=== PATIENT | female | born 1990 | race Asian ===

== ENCOUNTER 2017-04-01 17:35 | Inpatient (IN) | payer OTHER ==
--- NOTE | 2017-04-01 21:01 | HP ---
Past Medical History - Primary Care Physician PCP:: Fausto Priest - Admission Chief Complaint: 26 yo P0 @ 39 weeks with increasing in intensity contructions, no VB, No LOF, + FM History of Present Illness: problems: 1. Late transfer of care from [place] History Source: Patient Limitations to Obtaining History: No Limitations - Past Medical History ...: 1 ...Para: 0 ...Term: 0 ...: 0 ...Spon : 0 ...Induced : 0 ...LMP: 06/28/16 ... Weeks Gestation by Dates: 39.4 ...EDC by Dates: 04/04/17 - Past Surgical History Past Surgical History: Yes: None Hx Myomectomy: No Hx Transabdominal Cerclage: No - Smoking History Have you smoked in the past 12 months: No - Alcohol/Substance Use Hx Alcohol Use: No History of Substance Use: reports: None - Social History History of Recent Travel: No Home Medications - Allergies Allergies/Adverse Reactions: Allergies Allergy/AdvReac Type Severity Reaction Status Date / Time No Known Allergies Allergy Verified 04/01/17 18:24 - Home Medications Home Medications: Ambulatory Orders Vits #93/Iron Fum/FA [ Formula Tablet] 1 each PO DAILY Physical Exam - Maternity Vital Signs: Vital Signs Temperature 98.0 F 04/01/17 18:15 Pulse Rate 107 H 04/01/17 18:15 Respiratory Rate 20 04/01/17 18:15 Blood Pressure 124/81 04/01/17 18:15 O2 Sat by Pulse Oximetry (%) Constitutional: Yes: Well Nourished HENT: Yes: WNL Neck: Yes: WNL Cardiovascular: Yes: WNL Lungs: Clear to auscultation Breast(s): Yes: WNL - Abdominal Exam/OB Fundal Height: 39 (EFW 6.5lb) Number of Fetuses: Single Presentation: Vertex Contractions: Yes Regularity: Regular Intensity: Moderate Monitor Mode: External Heart Rate Location: Midline Category: I Accelerations: Uniform Decelerations: None - Vaginal Exam/OB Vaginal Bleediing: No Dilatation (cm): 5 Effacement (%): 80% Amniotic Membrane Status: Intact Presentation: Vertex/Position Station: -3 - Physical Exam Musculoskeletal: Yes: WNL Extremities: Yes: WNL Edema: No Integumentary: Yes: WNL Deep Tendon Reflex Grade: Normal +2 ...Motor Strength: WNL Psychiatric: Yes: WNL Assessment/Plan 26 yo P0 @ 39 weeks in early active labor Admit to L&D GBS negative, no prophylaxis needed IVF, NPO, Admit labs Stadol Phenergan for pain
[2017-04-01 21:04] LABS: BASOPHIL 0.4 % (0-2.0); EOSINOPHIL 0.8 % (0-4.5); MCHC 32.8 g/dl (32.0-36.0); MEAN CELL VOLUME 91.7 fl (80-96); MEAN PLT VOLUME 8.1 fl (7.5-11.1); NEUTROPHILS 77.5 % (42.8-82.8); PLATELET COUNT 314 K/MM3 (134-434); WHITE BLOOD COUNT 14.6 K/mm3 (4.0-10.0)
[2017-04-01] MEDS ORDERED: BUTORPHANOL TARTRATE 1 MG/ML VIAL IVPUSH ONE (21:17)
[2017-04-01] MEDS ORDERED: PROMETHAZINE HCL 25 MG/1 ML VIAL IVPUSH ONE (21:17)
[2017-04-01 21:30] LABS: INR 0.89 (0.82-1.09); PROTHROMBIN TIME (PATIENT) 9.8 SEC (9.98-11.88)
[2017-04-01] MEDS ORDERED: ELECTROLYTE-148 SOLN 1,000 ML IV SCH (21:30)
[2017-04-01 21:40] LABS: COCKROFT - GAULT 119.9435; CREATININE 0.8 mg/dL (0.55-1.02)
[2017-04-01 21:45] LABS: HIV 1 & 2 AB NEGATIVE; HIV 1 AGp24 NEGATIVE
[2017-04-01 22:24] VITALS: BMI 27.4
[2017-04-02] MEDS: ELECTROLYTE-148 SOLN 1,000 ML IV SCH ×2 (03:00→12:00)
[2017-04-02] MEDS ORDERED: BUTORPHANOL TARTRATE 1 MG/ML VIAL IVPB ONE (04:30)
[2017-04-02] MEDS ORDERED: FENTANYL/BUPIVACAINE/NS/PF - PCEA - 50 ML DISP.SYRIN EP SCH (07:30)
[2017-04-02] MEDS ORDERED: OXYTOCIN 15 UNITS/ LR 250 ML 250 ML IVPB SCH (08:30)
--- NOTE | 2017-04-02 08:44 | PN ---
Progress Note, Labor Vaginal Exam #1 Labor Exam Date: 04/02/17 Labor Exam Time: 08:30 Heart Rate (range): 140's pos. scalp stimulation, x2 early decels, Dilatation: 8 Effacement (%): 100 Amniotic Membrane Status: Ruptured (mild meconium) Presentation: Vertex/Position Station: -2 (26 yo P0 @ 39wks in labor, infrequent contractions, comfortable after epidural, Maternal status reasuring, EFW 6.5lb, no caput or molding Will start Pitocin augmentation)
--- NOTE | 2017-04-02 09:51 | PN ---
Ante-Partal Exam - Subjective Subjective: Pt w/o complaints. Chart reviewed. Pt met and examined. Vital Signs: Vital Signs Temperature 98.4 F 04/02/17 07:00 Pulse Rate 104 H 04/02/17 08:30 Respiratory Rate 20 04/02/17 08:30 Blood Pressure 121/72 04/02/17 08:30 O2 Sat by Pulse Oximetry (%) 98 04/02/17 08:30 Bleeding: No Headache: No Visual changes: No Right upper quadrant pain: No Pain (scale 1-10): 0 (Epidural) - Contractions Contractions: Yes Regularity: Regular (q5-6min) Intensity: Unaware Monitor Mode: External - Exam during Labor Heart Rate: 130 Variability: Moderate Heart Rate Location: Midline Category: I Monitor Accelerations: Present Monitor Decelerations: None Presentation: Vertex - Intrapartum Hemorrhage Risk Medium Risk Factors: None High Risk Factors: None Risk Score: 0 Risk Level: Low Risk - Assessment/Plan Assessment/Plan: 26 yo P0 with active labor. Fetus with Category I tracing and requires no intervention. The contractions are spread out and pitocin was started to augment labor.
--- NOTE | 2017-04-02 10:33 | PN ---
Ante-Partal Exam - Subjective Subjective: No complaints Vital Signs: Vital Signs Temperature 98.4 F 04/02/17 07:00 Pulse Rate 104 H 04/02/17 08:30 Respiratory Rate 20 04/02/17 08:30 Blood Pressure 121/72 04/02/17 08:30 O2 Sat by Pulse Oximetry (%) 98 04/02/17 08:30 Bleeding: No Headache: No Visual changes: No Right upper quadrant pain: No Pain (scale 1-10): 0 - Contractions Contractions: Yes Regularity: Regular Intensity: Unaware Monitor Mode: External - Exam during Labor Heart Rate: 140 Variability: Moderate Heart Rate Location: Midline Category: I Monitor Accelerations: Present Monitor Decelerations: None Exam: Vaginal Dilatation (cm): 9 Effacement (%): 90 Amniotic Membrane Status: Leaking Amniotic Fluid: Meconium Stained Meconium Staining: Moderate Presentation: Vertex Station: 0 Remarks: Adequate pelvimetry - Intrapartum Hemorrhage Risk Medium Risk Factors: None High Risk Factors: None Risk Score: 0 Risk Level: Low Risk - Assessment/Plan Assessment/Plan: 26yo P0 with active labor. Fetus with Category I tracing. Continue pitocin augmentation. Monitor labor progress. Anticipate .
--- NOTE | 2017-04-02 17:42 | PN ---
Ante-Partal Exam - Subjective Subjective: 26 yo P0 @ 39 wks in active labor, now spontaneously ruptured with thin meconium Vital Signs: Vital Signs Temperature 98.7 F 04/02/17 16:00 Pulse Rate 116 H 04/02/17 16:00 Respiratory Rate 20 04/02/17 16:00 Blood Pressure 149/90 04/02/17 16:00 O2 Sat by Pulse Oximetry (%) 100 04/02/17 16:00 Bleeding: No Headache: No Visual changes: No Right upper quadrant pain: No - Contractions Contractions: Yes Regularity: Regular Intensity: Moderate Monitor Mode: External - Exam during Labor Heart Rate: 130 Variability: Moderate Heart Rate Location: [facility] Category: I Monitor Accelerations: Present Monitor Decelerations: None Exam: Vaginal Dilatation (cm): FD Effacement (%): 100 Amniotic Membrane Status: Ruptured Meconium Staining: Light Presentation: Vertex Station: +1 - Intrapartum Hemorrhage Risk Medium Risk Factors: None High Risk Factors: None Risk Score: 0 Risk Level: Low Risk - Assessment/Plan Assessment/Plan: 26 yo P 0 @ 39 wks now pushing for 1 hour, vertex in OP presentation will give top off and let patient rest, since currently poor maternal effort, to achieve further passive descent status is currently reassuring
[2017-04-02] MEDS ORDERED: BENZOCAINE 20% 57 GM BOTTLE TP PRN (21:21)
[2017-04-02] MEDS ORDERED: IBUPROFEN 800 MG/8 ML IJ IVPB PRN (21:21)
[2017-04-02] MEDS ORDERED: WITCH HAZEL 50% (TUCKS) 40 PAD/JAR PAD TP PRN (21:21)
[2017-04-02] MEDS ORDERED: BENZOCAINE 28 GM HEMORRHOIDAL OINTMENT TP PRN (21:21)
[2017-04-02] MEDS ORDERED: METHYLERGONOVINE MALEATE 0.2 MG/1 ML AMP IM PRN (21:21)
[2017-04-02] MEDS ORDERED: D5W-LR W/ 20 UNITS OXYTOCIN 1,000 ML IV SCH (21:30)
[2017-04-02] MEDS ORDERED: ONDANSETRON 4 MG/2 ML VIAL IVPB PRN (21:47)
--- NOTE | 2017-04-02 22:52 | OP ---
Operative Note - Note: Operative Date: 04/02/17 Pre-Operative Diagnosis: 26 yo P1 @ 39 wks with failure to descent, Occiput Posterior, Poor maternal effort Operation: Primary low segment transverse c/section Findings: 1. Viable female in occiput posterior presentation, APGARs 9/10, weight 6.6lb 2. Normal bilateral tubes and ovaries Post-Operative Diagnosis: Same as Pre-op Surgeon: Charo Dc Supervisor Filtration: Ramone Hernandez Anesthesiologist/TIE LOADER: Jane Lockhart Anesthesia: Epidural Specimens Removed: Fetus and Placenta Estimated Blood Loss (mls): 800 Drains, Volume Out (mls): 100 Fluid Volume Replaced (mls): 1,500 Operative Report Dictated: Yes
--- NOTE | 2017-04-03 00:04 | OP ---
DATE OF OPERATION: 04/02/2017 PREOPERATIVE DIAGNOSIS: A 26-year-old para 1 at 39 weeks with failure to descend. Occiput posterior presentation and poor maternal effort. POSTOPERATIVE DIAGNOSIS: A 26-year-old para 1 at 39 weeks with failure to descend. Occiput posterior presentation and poor maternal effort. OPERATION: Primary low segment transverse section. FINDINGS: Viable female , occiput posterior presentation, Apgars 9 and 10 , weight 6.6 pounds, normal bilateral tubes and ovaries. SURGEON: Charo Dc M.D. ANESTHESIOLOGIST: Ramone Hernandez M.D. ANESTHESIOLOGIST: Jane Lockhart D.O. ANESTHESIA: Epidural. DESCRIPTION OF OPERATIVE PROCEDURE: After assuring informed consent, the patient was brought to the operating room where the timeout was called. Patient was identified. The abdomen was prepped and draped in the sterile fashion. Left lateral displacement was achieved. Pfannenstiel skin incision was made with a scalpel, carried down to the level of fascia with a scalpel. Fascia was dissected bilaterally with Bovie cautery and off the rectus abdominis muscle with Bovie cautery superiorly and inferiorly. The rectus abdominis was split in the midline and dissected superiorly and inferiorly. Peritoneum was tented and entered bluntly, and peritoneal incision was dissected bilaterally with Bovie cautery and stretched manually. Bladder was retracted with low edge of the George. The vesicouterine peritoneum was tented and dissected bilaterally with Metzenbaum scissors. Bladder flap was created and retracted with the George. The uterine incision was made with a scalpel and dissected bilaterally with bandage scissors. Infant's head in occiput posterior presentation, was delivered atraumatically. was delivered, cord was clamped x2. was handed to a waiting lump receiver. Apgars were 9 and 10. Baby's weight was 6 pounds 6 ounces. Placenta was expressed intact The uterus was subsequently repaired with 0 Biosyn with running locking suture and subsequent imbricating layer. The gutters were cleared of clot and debris, and the normal tubes and ovaries were visualized. The peritoneum was closed with 0 Biosyn. The muscle was reapproximated in the midline with 0 Biosyn. Fascia was closed with 0 Vicryl in running suture. The subcuticular stitches were placed with 0 chromic and 4-0 Biosyn was used to reapproximate the skin. Excellent hemostasis was noted throughout. Estimated blood loss was 800 mL. Urine output was 100 mL. Fluid replaced was 1500. The sponge and instrument counts were correct x2. Patient was returned to the recovery room in stable condition. Dayna [id number] NICH[facility] NOYES MEMORIAL HOSPITALHalle
[2017-04-03] MEDS: CEFAZOLIN (PRE-DOCKED) 50 ML IVPB SCH ×3 (01:15→17:27)
[2017-04-03 08:36] LABS: MCH 30.7 pg (25.7-33.7); MCHC 33.1 g/dl (32.0-36.0); MEAN CELL VOLUME 92.7 fl (80-96); MEAN PLT VOLUME 7.9 fl (7.5-11.1); PLATELET COUNT 255 K/MM3 (134-434); RDW 14.4 % (11.6-15.6); WHITE BLOOD COUNT 21.4 K/mm3 (4.0-10.0)
--- NOTE | 2017-04-03 08:40 | PN ---
Progress Note (short form) - Note Progress Note: Post op day#1.S/P C section under epidural anesthesia with duramorph uneventful.Patient stable and does not c/o pain.No any anesthesia related problem.Patient DC from the anesthesia care.
[2017-04-03] MEDS: ENOXAPARIN NA (PORCINE) 40 MG/0.4 ML DISP.SYRIN SQ SCH (10:03)
[2017-04-03] MEDS: PRENATAL VITAMINS W/ FOLIC ACID TABLET (FP) PO SCH (10:58)
[2017-04-03 11:48] LABS: PLATELET ESTIMATE ADEQUATE (NORMAL)
[2017-04-03] MEDS ORDERED: ACETAMINOPHEN 1000 MG/100 ML VIAL (NON FORMULARY) IVPB PRN (12:56)
[2017-04-03] MEDS ORDERED: DEXTROSE 5%-LACTATED RINGERS 1,000 ML IV SCH (13:00)
--- NOTE | 2017-04-03 14:13 | PN ---
Post Progress Note - Subjective Subjective: 26 yo P1 now, s/p 1' c/s for failure to descent, declined to push Pain well controlled No nausea, vomiting Noted to have hematuria Post Day: 1 Type of Delivery: Primary C/S Vital Signs: Vital Signs Temperature 98.7 F 04/03/17 05:17 Pulse Rate 110 H 04/03/17 05:17 Respiratory Rate 20 04/03/17 06:00 Blood Pressure 114/64 04/03/17 05:17 O2 Sat by Pulse Oximetry (%) 99 04/02/17 22:45 Breast Exam: Yes: Soft Uterus: Yes: Fundus Firm Incision: Yes: Dressing dry and intact Abdomen/GI: Yes: Abdomen soft Lochia: Yes: Rubra Lochia, amount: Small Extremities: Yes: Calves non-tender Perineum: Yes: Intact Activity: Other (in bed) - Labs Labs: CBC WBC 21.4 K/mm3 (4.0-10.0) H D 04/03/17 08:00 RBC 3.60 M/mm3 (3.60-5.2) 04/03/17 08:00 Hgb 11.0 GM/dL (10.7-15.3) D 04/03/17 08:00 Hct 33.4 % (32.4-45.2) 04/03/17 08:00 MCV 92.7 fl (80-96) 04/03/17 08:00 MCHC 33.1 g/dl (32.0-36.0) 04/03/17 08:00 RDW 14.4 % (11.6-15.6) 04/03/17 08:00 Plt Count 255 K/MM3 (134-434) 04/03/17 08:00 MPV 7.9 fl (7.5-11.1) 04/03/17 08:00 Neutrophils % 86.0 % (42.8-82.8) H 04/03/17 08:00 Lymphocytes % 7.0 % (8-40) L D 04/03/17 08:00 Monocytes % 6.0 % (3.8-10.2) 04/03/17 08:00 Eosinophils % 0.8 % (0-4.5) 04/01/17 20:59 Basophils % 1.0 % (0-2.0) 04/03/17 08:00 Differential Comment Manual diff done 04/03/17 08:00 Platelet Estimate Adequate (NORMAL) 04/03/17 08:00 Assessment/Plan 26 yo P1 now s/p 1' LST c/section for failure to descent, declined pushing VSS, Afibrile Hematuria noted Workman kept, NPO, IVHydration continued Urology Dr. Talbot consulted Cystoureterogram ordered, case discussed with Dr. Ribera
[2017-04-03] MEDS: SIMETHICONE 80 MG TAB.CHEW (FP) PO PRN ×2 (17:28→22:57)
[2017-04-03] MEDS: IBUPROFEN 600 MG TABLET (FP) PO PRN (17:28)
[2017-04-03] MEDS: CLINDAMYCIN 600MG PREMIX IVPB 50 ML IVPB SCH (17:54)
[2017-04-03] MEDS: GENTAMICIN 80 MG PREMIXED IVPB 100 ML IVPB SCH (18:20)
--- NOTE | 2017-04-03 18:35 | PN ---
Progress Note, Physician Chief Complaint: 26 yo P1 s/p c/s POD # 1 with Hematuria pain contralled very light blood tinge urine - Current Medication List Current Medications: Active Medications Acetaminophen (Tylenol -) 650 mg PO Q4H PRN PRN Reason: FEVER OR PAIN Acetaminophen (Ofirmev Injection -) 1,000 mg IVPB Q8H PRN Last Admin: 04/03/17 13:10 Dose: 1,000 mg Benzocaine (Americaine Ointment -) 1 applic TP PRN PRN PRN Reason: PAIN Benzocaine (Americaine 20% Adolphus -) 1 spray TP PRN PRN PRN Reason: PAIN Bisacodyl (Dulcolax Suppository -) 10 mg RC PRN PRN PRN Reason: CONSTIPATION Diphenhydramine HCl (Benadryl Injection -) 25 mg IVPUSH Q4H PRN PRN Reason: Pruritis Enoxaparin Sodium (Lovenox -) 40 mg SQ DAILY [facility] Last Admin: 04/03/17 10:03 Dose: 40 mg Dextrose/Lactated Ringer's (D5-Lr -) 1,000 mls @ 150 mls/hr IV ASDIR NU Last Admin: 04/03/17 13:14 Dose: 150 mls/hr Gentamicin Sulfate/Sodium Chloride (Garamycin 80 Mg Premixed Ivpb -) 100 mls @ 100 mls/hr IVPB Q8H-IV NU Last Admin: 04/03/17 18:20 Dose: 100 mls/hr Clindamycin Phosphate (Cleocin 600 Mg Premix Ivpb -) 50 mls @ 100 mls/hr IVPB Q8H-IV [facility] Last Admin: 04/03/17 17:54 Dose: 100 mls/hr Ibuprofen (Motrin -) 600 mg PO Q4H PRN PRN Reason: PAIN Last Admin: 04/03/17 17:28 Dose: 600 mg Ibuprofen (Caldolor Injection -) 800 mg IVPB Q8H PRN PRN Reason: PAIN OR FEVER Methylergonovine Maleate (Methergine Injection -) 0.2 mg IM Q4H PRN PRN Reason: Excessive Bleeding (L&D) Oxycodone HCl (Roxicodone -) 5 mg PO Q4H PRN PRN Reason: PAIN LEVEL 1-5 Multivit/Folic Acid/Iron ( Vitamins (Sjr) -) 1 tab PO DAILY NU Last Admin: 04/03/17 10:58 Dose: Not Given Senna/Docusate Sodium (Pericolace -) 2 tablet PO HS PRN PRN Reason: CONSTIPATION Simethicone (Mylicon -) 80 mg PO Q4H PRN PRN Reason: GAS Last Admin: 04/03/17 17:28 Dose: 80 mg Witch Pilar/Glycerin (Tucks Pads -) 1 pad TP PRN PRN PRN Reason: PAIN - Objective Vital Signs: Vital Signs Temperature 98.7 F 04/03/17 14:00 Pulse Rate 101 H 04/03/17 14:00 Respiratory Rate 20 04/03/17 16:42 Blood Pressure 112/74 04/03/17 14:00 O2 Sat by Pulse Oximetry (%) 99 04/02/17 22:45 Constitutional: Yes: Well Nourished Eyes: Yes: WNL Gastrointestinal: Yes: WNL, Normal Bowel Sounds, Soft Genitourinary: Yes: Hematuria Breast(s): Yes: WNL Wound/Incision: Yes: Clean/Dry Neurological: Yes: WNL (Result of Cystouretrogram d/w No ureteral or bladder injury identified 3mm R kidney stone noted) Labs: CBC, BMP 04/03/17 08:00 04/01/17 20:59 INR, PTT INR 0.89 (0.82-1.09) 04/01/17 20:59 Assessment/Plan 26 yo P1 now s/p 1' LST c/section for failure to descent, declined pushing VSS, Afibrile Workman kept, NPO, IVHydration continued Urine culture sent Urology Dr. Talbot will perform Cystoscopy tomorrow CBC in am Gentamycin and Clindomycin added to Ancef ambulation and Breast feeding encouraged
[2017-04-03] MEDS ORDERED: BISACODYL 10 MG SUPP.RECT RC PRN (21:21)
[2017-04-03] MEDS: oxyCODONE HCL 5 MG TABLET PO PRN (22:57)
[2017-04-04] MEDS: CLINDAMYCIN 600MG PREMIX IVPB 50 ML IVPB SCH ×3 (01:18→17:16)
[2017-04-04] MEDS: IBUPROFEN 600 MG TABLET (FP) PO PRN ×3 (01:35→17:39)
[2017-04-04] MEDS: ACETAMINOPHEN 325 MG TABLET (FP) PO PRN ×4 (01:36→22:01)
[2017-04-04] MEDS: GENTAMICIN 80 MG PREMIXED IVPB 100 ML IVPB SCH ×3 (02:58→17:41)
[2017-04-04 08:46] LABS: BASOPHIL 0.4 % (0-2.0); EOSINOPHIL 1.2 % (0-4.5); MCH 30.4 pg (25.7-33.7); MEAN CELL VOLUME 92.3 fl (80-96); MEAN PLT VOLUME 7.2 fl (7.5-11.1); NEUTROPHILS 85.4 % (42.8-82.8); PLATELET COUNT 234 K/MM3 (134-434); RDW 14.1 % (11.6-15.6); WHITE BLOOD COUNT 16.1 K/mm3 (4.0-10.0)
[2017-04-04] MEDS: PRENATAL VITAMINS W/ FOLIC ACID TABLET (FP) PO SCH (09:26)
[2017-04-04] MEDS: ENOXAPARIN NA (PORCINE) 40 MG/0.4 ML DISP.SYRIN SQ SCH (10:15)
--- NOTE | 2017-04-04 17:18 | PN ---
Post Progress Note - Subjective Subjective: No complaints, (+) flatus, ambulated, (+) voiding Post Day: 1 Type of Delivery: Primary C/S Vital Signs: Vital Signs Temperature 98.4 F 04/04/17 10:00 Pulse Rate 82 04/04/17 10:00 Respiratory Rate 20 04/04/17 10:00 Blood Pressure 129/78 04/04/17 10:00 O2 Sat by Pulse Oximetry (%) 99 04/02/17 22:45 Breast Exam: Yes: Soft Uterus: Yes: Fundus Firm, Fundus below umbilicus, Non-tender Incision: Yes: Sutures intact Abdomen/GI: Yes: Abdomen soft, Tolerating PO Lochia: Yes: Rubra Lochia, amount: Small Extremities: Yes: Calves non-tender, Edema Perineum: Yes: Intact Activity: Ambulating - Labs Labs: CBC WBC 16.1 K/mm3 (4.0-10.0) H 04/04/17 08:00 RBC 3.31 M/mm3 (3.60-5.2) L 04/04/17 08:00 Hgb 10.1 GM/dL (10.7-15.3) L 04/04/17 08:00 Hct 30.5 % (32.4-45.2) L 04/04/17 08:00 MCV 92.3 fl (80-96) 04/04/17 08:00 MCHC 33.0 g/dl (32.0-36.0) 04/04/17 08:00 RDW 14.1 % (11.6-15.6) 04/04/17 08:00 Plt Count 234 K/MM3 (134-434) 04/04/17 08:00 MPV 7.2 fl (7.5-11.1) L 04/04/17 08:00 Neutrophils % 85.4 % (42.8-82.8) H 04/04/17 08:00 Lymphocytes % 9.0 % (8-40) D 04/04/17 08:00 Monocytes % 4.0 % (3.8-10.2) 04/04/17 08:00 Eosinophils % 1.2 % (0-4.5) 04/04/17 08:00 Basophils % 0.4 % (0-2.0) 04/04/17 08:00 Differential Comment Manual diff done 04/03/17 08:00 Platelet Estimate Adequate (NORMAL) 04/03/17 08:00 Assessment/Plan 26yo P1 s/p primary LT C/S, doing well stable, afebrile. Pt is tolerating anemia well. The cystogram and CT results reviewed. The pt is voiding well. Workman catheter was removed with no hematuria. Will await input. care instructions reviewed. Continue routine postop care. Ambulation encouraged.
[2017-04-04] MEDS: SIMETHICONE 80 MG TAB.CHEW (FP) PO PRN ×2 (17:41→22:02)
[2017-04-04] MEDS: oxyCODONE HCL 5 MG TABLET PO PRN (22:01)
[2017-04-04] MEDS: SENNOSIDES/DOCUSATE COMBO (SENNA PLUS) TABLET (UD) PO PRN (22:02)
[2017-04-05] MEDS: SIMETHICONE 80 MG TAB.CHEW (FP) PO PRN ×5 (04:41→23:53)
[2017-04-05] MEDS: IBUPROFEN 600 MG TABLET (FP) PO PRN ×4 (04:41→23:53)
[2017-04-05] MEDS: oxyCODONE HCL 5 MG TABLET PO PRN (04:42)
[2017-04-05 06:26] LABS: BASOPHIL 0.2 % (0-2.0); EOSINOPHIL 1.5 % (0-4.5); MCHC 32.7 g/dl (32.0-36.0); MEAN CELL VOLUME 91.7 fl (80-96); MEAN PLT VOLUME 8.1 fl (7.5-11.1); NEUTROPHILS 80.6 % (42.8-82.8); PLATELET COUNT 300 K/MM3 (134-434); RDW 13.8 % (11.6-15.6); WHITE BLOOD COUNT 13.9 K/mm3 (4.0-10.0)
[2017-04-05 06:51] LABS: ALK PHOS 119 U/L (45-117); ANION GAP 9 (8-16); BILIRUBIN,TOTAL 0.4 mg/dL (0.2-1.0); CALCIUM 8.3 mg/dL (8.5-10.1); CO2 28 mmol/L (21-32); COCKROFT - GAULT 159.9275; CREATININE 0.6 mg/dL (0.55-1.02); GLUCOSE,RANDOM 79 mg/dL (74-106); SGOT/AST 22 U/L (15-37); SGPT/ALT 12 U/L (12-78); TOT PROT 4.9 g/dl (6.4-8.2)
--- NOTE | 2017-04-05 09:17 | PN ---
Post Progress Note - Subjective Subjective: No complaints, feels well Post Day: 3 Type of Delivery: Primary C/S Vital Signs: Vital Signs Temperature 98.2 F 04/05/17 08:08 Pulse Rate 88 04/05/17 08:08 Respiratory Rate 18 04/05/17 08:08 Blood Pressure 134/78 04/05/17 08:08 O2 Sat by Pulse Oximetry (%) 99 04/02/17 22:45 Breast Exam: Yes: Soft Uterus: Yes: Fundus Firm, Fundus below umbilicus, Non-tender Incision: Yes: Sutures intact Abdomen/GI: Yes: Abdomen soft, Passing flatus, Tolerating PO Lochia: Yes: Rubra Lochia, amount: Small Extremities: Yes: Calves non-tender, Edema Perineum: Yes: Intact Activity: Ambulating - Labs Labs: CBC WBC 13.9 K/mm3 (4.0-10.0) H 04/05/17 05:32 RBC 3.17 M/mm3 (3.60-5.2) L 04/05/17 05:32 Hgb 9.5 GM/dL (10.7-15.3) L 04/05/17 05:32 Hct 29.0 % (32.4-45.2) L 04/05/17 05:32 MCV 91.7 fl (80-96) 04/05/17 05:32 MCHC 32.7 g/dl (32.0-36.0) 04/05/17 05:32 RDW 13.8 % (11.6-15.6) 04/05/17 05:32 Plt Count 300 K/MM3 (134-434) D 04/05/17 05:32 MPV 8.1 fl (7.5-11.1) D 04/05/17 05:32 Neutrophils % 80.6 % (42.8-82.8) 04/05/17 05:32 Lymphocytes % 13.4 % (8-40) D 04/05/17 05:32 Monocytes % 4.3 % (3.8-10.2) 04/05/17 05:32 Eosinophils % 1.5 % (0-4.5) 04/05/17 05:32 Basophils % 0.2 % (0-2.0) 04/05/17 05:32 Differential Comment Manual diff done 04/03/17 08:00 Platelet Estimate Adequate (NORMAL) 04/03/17 08:00 Assessment/Plan 26yo P1 s/p primary LT C/S, doing well stable, afebrile. Pt is tolerating anemia well. The cystogram and CT results reviewed. The pt is voiding well. care instructions reviewed. Continue routine postop care. Ambulation encouraged.
[2017-04-05] MEDS: PRENATAL VITAMINS W/ FOLIC ACID TABLET (FP) PO SCH (09:49)
[2017-04-05] MEDS: ENOXAPARIN NA (PORCINE) 40 MG/0.4 ML DISP.SYRIN SQ SCH (09:49)
[2017-04-05] MEDS: ACETAMINOPHEN 325 MG TABLET (FP) PO PRN ×3 (11:24→23:54)
[2017-04-05] MEDS: SENNOSIDES/DOCUSATE COMBO (SENNA PLUS) TABLET (UD) PO PRN (22:11)
[2017-04-06 01:01] VITALS: TEMP 98.1
[2017-04-06] MEDS: SIMETHICONE 80 MG TAB.CHEW (FP) PO PRN (07:44)
[2017-04-06] MEDS: ACETAMINOPHEN 325 MG TABLET (FP) PO PRN (07:44)
[2017-04-06] MEDS: IBUPROFEN 600 MG TABLET (FP) PO PRN (07:45)
--- NOTE | 2017-04-06 07:52 | DS ---
Physical Exam-TILE LAYER Vital Signs: Vital Signs Temperature 98.1 F 04/05/17 22:00 Pulse Rate 63 04/05/17 22:00 Respiratory Rate 18 04/05/17 22:00 Blood Pressure 128/78 04/05/17 22:00 O2 Sat by Pulse Oximetry (%) 99 04/02/17 22:45 Constitutional: Yes: Well Nourished, No Distress, Calm Eyes: Yes: WNL, Conjunctiva Clear, EOM Intact HENT: Yes: WNL, Atraumatic, Normocephalic Neck: Yes: WNL, Supple, Trachea Midline Cardiovascular: Yes: WNL, Regular Rate and Rhythm Respiratory: Yes: WNL, Regular, CTA Bilaterally Gastrointestinal: Yes: WNL ...Rectal Exam: Yes: WNL Renal/: Yes: WNL Breast(s): Yes: WNL Musculoskeletal: Yes: WNL Extremities: Yes: WNL Edema: Yes Edema: LLE: Trace, RLE: Trace Integumentary: Yes: WNL Wound/Incision: Yes: Clean/Dry, Well Approximated, Sutures Intact Neurological: Yes: WNL, Alert, Oriented ...Motor Strength: WNL Psychiatric: Yes: WNL, Alert, Oriented Labs: CBC, BMP 04/05/17 05:32 04/05/17 05:32 Delivery - Delivery Section: Primary, Low Flap Transverse Type of Anesthesia: Epidural Episiotomy/Laceration: None EBL (cc): 1,000 Delivery, Single - Stages of Labor Date 1st Stage Initiatied: 04/02/17 Time 1st Stage Initiated: 09:30 Date 2nd Stage Initiated: 04/02/17 Time 2nd Stage Initiated: 16:30 Date of Delivery: 04/02/17 Time of Delivery: 20:30 Time Placenta Delivered: 20:32 Placenta: Yes: Expressed - Condition of Translator/Interpreter/Online Communications Manager Present: Yes Name: Alexandru Bateman Gender: Female Weight: 6 lb 6 oz Position: OP Total Hours ROM (Hrs/Mins): 14 hours 7 minutes - 1 Minute Total Score: 9 5 Minutes Total Score: 10 - [place] Feeding Plan Initial Plan: Exclusive throughout hospitalization Remarks - Remarks Remarks: post op hematuria, resolved, cystogram negative Discharge Summary Reason For Visit: LABOR Condition: Good - Instructions Diet, Activity, Other Instructions: follow up office 1 week, if pain, bleeding, difficulty voiding call MD Referrals: Fausto Priest MD [Staff Physician] - Disposition: HOME - Home Medications Comprehensive Discharge Medication List: Ambulatory Orders Vits #93/Iron Fum/FA [ Formula Tablet] 1 each PO DAILY Ibuprofen [Motrin -] 600 mg PO QID #28 tablet 04/06/17
[2017-04-06 08:40] VITALS: PULSE 79
[2017-04-06] MEDS: PRENATAL VITAMINS W/ FOLIC ACID TABLET (FP) PO SCH (09:25)
[2017-04-06] MEDS: ENOXAPARIN NA (PORCINE) 40 MG/0.4 ML DISP.SYRIN SQ SCH (09:26)
[2017-04-06 10:33] VITALS: BP 135/93
--- NOTE | 2017-04-11 11:18 | PATH ---
Surgical Pathology Report Patient Name: SAW HAMM Med. Rec. #: [id number] /Age/Gender: 1990 (Age: 26) / F Account: [id number] Location: [facility] OBS/CALL BOX WIRER Taken: 04/02/2017 Received: 04/03/2017 Reported: 04/05/2017 Physicians: Charo Dc M.D. Specimen(s) Received PLACENTA Clinical History , no history Primary c/section Final Diagnosis PLACENTA, DELIVERY: FOCALLY DISRUPTED THIRD TRIMESTER PLACENTA WITH FOCAL FIBRIN THROMBUS, MILD PREVILLOUS, PERIVILLOUS, AND PRECHORIONIC FIBRIN DEPOSITION, THREE VESSEL UMBILICAL CORD, AND PLACENTAL MEMBRANES WITH FOCAL ACUTE CHORIOAMNIONITIS AND MECONIUM HISTIOCYTOSIS. Electronically Signed Jun Miranda M.D. Gross Description The specimen is received fresh, labeled "placenta" and is a 430 gram, 19.0 x 15.5 x 2.2 cm placenta with attached membranes and umbilical cord. The attached membranes are rockwell-green, meconium stained, translucent with focal opacities and insert marginally. The umbilical cord measures 24 cm. in length and averages 1.1 cm. in diameter. The cord inserts eccentrically, 2.5 cm to the nearest margin. No true knots or strictures are identified. Cut surface of the umbilical cord reveals 3 vessels. The surface is mix-green, meconium stained with fibrin deposition and appropriate caliber vessels. The maternal surface is red-brown with focal defects. Sectioning reveals a 1.4 cm in greatest dimension rockwell intraparenchymal lesion. The remaining placental parenchyma is red-brown and spongy. Road Supervisor Of Engines sections are submitted in 4 cassettes as follows: 1-membrane rolls and umbilical cord; 2-lesion; 3-4 -full thickness sections of placenta. 04/04/2017 [facility]04/04/2017
== END 2017-04-06 12:50 | disposition home or self-care (01) | DRG 540 ==
LOC: JDEL 17:35 → JLDR 20:05 → J3W 04-02 23:15
PROVIDERS: ADMIT Obstetrics & Gynecology; ATTEND Obstetrics & Gynecology
PROC: 10D00Z1 Extraction of Products of Conception, Low, Open Approach (ICD-10-PCS; principal; 2017-04-02)
DX: O62.0 Primary inadequate contractions (principal); O99.02 Anemia complicating childbirth; D64.9 Anemia, unspecified; Z3A.39 39 weeks gestation of pregnancy; O26.893 Other specified pregnancy related conditions, third trimester; R31.9 Hematuria, unspecified; Z37.0 Single live birth
CPT/HCPCS: 36415; 51600; 74178-TC; 74430-TC; 76000-TC; 80048; 80053; 85025; 85610; 85730; 86850; 86900; 86901; 87086; 87389; 88307-TC; Q9967